=== PATIENT | female | born 1980 | race Caucasian/White ===

== ENCOUNTER → 2019-07-02 17:48 | Outpatient (CLI) | payer OTHER, SELFPAY ==
--- NOTE | 2019-07-02 | DI.MG.S_ITS ---
BILATERAL DIGITAL SCREENING MAMMOGRAM 3D/2D WITH CAD: 07/02/2019 CLINICAL: Routine screening. Baseline exam. No prior exams were available for comparison. The tissue of both breasts is heterogeneously dense. This may lower the sensitivity of mammography. Current study was also evaluated with a Computer Aided Detection (CAD) system. No significant masses, calcifications, or other findings are seen in either breast. IMPRESSION: NEGATIVE There is no mammographic evidence of malignancy. A 1 year screening mammogram is recommended. This exam was interpreted at Station ID: [id number]. NOTE: For mammograms, a report in lay terms will be sent to the patient. Approximately 15% of breast malignancies will not be visualized mammographically. In the management of a palpable breast mass, a negative mammogram must not discourage biopsy of a clinically suspicious lesion. Electronically Signed By: Isaias shepherd/keerthi:07/03/2019 08:36:40 letter sent: Normal Exam ACR BI-RADS Category 1: Negative 3341F
== END ==
PROVIDERS: Visit Provider Nurse Practitioner Family
DX: Z12.31 Encounter for screening mammogram for malignant neoplasm of breast (principal)
CPT/HCPCS: 77063; 77067

== ENCOUNTER 2019-08-06 11:43 | Emergency (ER) | payer OTHER, SELFPAY ==
--- NOTE | 2019-08-06 | DI.US.S_ITS ---
PROCEDURE: US PERIPH VENOUS LOW EXTREM RT INDICATIONS: CALF PAIN X 1 WEEK TECHNIQUE: Real-time imaging, as well as color and pulse Doppler interrogation, were performed of the lower extremity deep veins from the inguinal ligament to the popliteal fossa. COMPARISON: None. FINDINGS: The common femoral, femoral and popliteal veins are normally compressible, and free of intraluminal thrombus. Color and pulse Doppler demonstrate normal phasic intraluminal flow. There is normal augmentation response to distal compression maneuver. IMPRESSION: No evidence of DVT in visualized right lower extremity veins. Dictated by: Jamar Canales M.D. on 08/06/2019 at 12:26 Approved by: Jamar Canales M.D. on 08/06/2019 at 12:26
[2019-08-06 11:49] VITALS: BP 123/79; PULSE 72; RESP 18; TEMP 36.8; O2SAT 94
--- NOTE | 2019-08-06 11:57 | ED_ITS ---
HPI - Extremity Injury (Lower) <RORO Cisneros - Last Filed: 08/06/19 13:28> General Chief Complaint: Extremity Injury, Lower Stated Complaint: right calf pain Time Seen by Provider: 08/06/19 11:44 Source: patient and family Mode of arrival: Ambulatory Limitations: no limitations History of Present Illness HPI Narrative: The patient is a 38-year-old female nonsmoker with history of idiopathic cardiomyopathy who presents with a chief complaint of right calf pain for the past week. She has a history of cardiomyopathy, was seen at [facility]. She presents with a chief complaint of right calf pain for a week. She went to the walk-in clinic, who referred her here for an ultrasound. She has taken Aleve on and off for the pain. She denies any immobility, surgeries, flights, hospitalizations etcetera. The pain comes and goes, no specific alleviating or exacerbating factors. Patient declines any specific physical activity, your work etcetera prior to the onset of the calf pain. She denies any chest pain, shortness of breath, nausea vomiting diarrhea fevers or abdominal pain. Related Data Home Medications Medication Instructions Recorded Confirmed spironolactone 25 mg PO DAILY #0 01/20/17 08/06/19 albuterol sulfate [Proventil HFA] 1 puff INH Q4HP PRN 08/06/19 08/06/19 carvedilol 50 mg PO BID 08/06/19 08/06/19 drospirenone-ethinyl estradiol 1 tab PO DAILY 08/06/19 08/06/19 [Ocella] flecainide 150 mg PO DAILY 08/06/19 08/06/19 sacubitril-valsartan [Entresto] 1 tab PO BID 08/06/19 08/06/19 sumatriptan succinate [Imitrex] 0 mg PO PRN PRN 08/06/19 08/06/19 Previous Rx's Medication Instructions Recorded levothyroxine 200 mcg tablet 200 mcg PO QAM #30 tab 06/26/18 Review of Systems <RORO Cisneros - Last Filed: 08/06/19 13:28> Review of Systems Narrative: GENERAL: Denies chills, fatigue, malaise, fever, sweats. HEENT: Denies sinus pain, ear pain, sore throat, difficulty swallowing, dizziness. RESPIRATORY: Denies dyspnea, cough, wheezing, hemoptysis, sputum. CARDIOVASCULAR: Denies chest pain, palpitations, orthopnea, edema, GASTROINTESTINAL: Denies nausea, vomiting, abdominal pain, diarrhea, cons tipation, melena. : Denies dysuria, frequency, incontinence, hematuria, urinary retention. MUSCULOSKELETAL: See HPI SKIN: Denies rash, skin lesions, or other NEUROLOGIC: Denies weakness, headache, numbness, change in speech, confusion, seizures, incoordination. PSYCHIATRIC: No concerning psychosocial issues. 12 point review of systems is negative except for those stated above Patient History <RORO Cisneros - Last Filed: 08/06/19 13:28> Medical History (Updated 08/06/19 @ 13:25 by RORO Cisneros) Idiopathic cardiomyopathy (Acute) Surgical History (Updated 12/26/17 @ 06:17 by Conversion Provider) Status post hernia repair Family History (Updated 04/08/14 @ 00:00 by Conversion Provider) Father Age: 69 High cholesterol Mother Age: 69 High cholesterol Social History Smoking Status: Never smoker Smoking Status: Never smoker alcohol intake frequency: 0-2 drinks per day Substance Use Type: does not use Exam <RORO Cisneros - Last Filed: 08/06/19 13:28> Narrative Exam Narrative: GENERAL: This is a well-nourished, well-developed patient, in no acute distress HEAD: Atraumatic. Normocephalic. No temporal or scalp tenderness. EYES: Pupils equal round and reactive. Extraocular motions intact. No scleral icterus. No injection or drainage. ENT: Nose without bleeding, purulent drainage or septal hematoma. Throat without erythema, tonsillar hypertrophy or exudate. Uvula midline. Airway patent. NECK: Trachea midline. No JVD or lymphadenopathy. Supple, nontender, no meningeal signs. CARDIOVASCULAR: Regular rate and rhythm RESPIRATORY: Clear to auscultation. Breath sounds equal bilaterally. No wheezes, rales, or rhonchi. No cough. No increased respiratory effort. No accessory muscle use. GASTROINTESTINAL: Abdomen soft, non-tender, nondistended. No hepato- splenomegaly, or palpable masses. No guarding. Active bowel sounds all 4 quadrants EXTREMITIES: No clubbing, cyanosis, or edema. No joint tenderness, effusion, or edema noted. BACK: Nontender without deformity or crepitance. No flank tenderness. NEURO: AOx3. SKIN: No rash or erythema or ecchymosis on visible skin. No erythema ecchymosis noted right lower leg. Initial Vital Signs Initial Vital Signs: Vital Signs Temperature 98.3 F 08/06/19 11:49 Pulse Rate 72 08/06/19 11:49 Respiratory Rate 18 08/06/19 11:49 Blood Pressure 123/79 08/06/19 11:49 Pulse Oximetry 94 08/06/19 11:49 <Ananya Blair DO - Last Filed: 08/06/19 19:25> Initial Vital Signs Initial Vital Signs: Vital Signs Temperature 98.3 F 08/06/19 11:49 Pulse Rate 72 08/06/19 11:49 Respiratory Rate 18 08/06/19 11:49 Blood Pressure 123/79 08/06/19 11:49 Pulse Oximetry 94 08/06/19 11:49 Course <RORO Cisneros - Last Filed: 08/06/19 13:28> Orders Ordered: ED Orders 08/06/19 11:52 US periph venous low extrem rt Stat Vital Signs Vital signs: Vital Signs - 8 hr 08/06/19 11:49 08/06/19 13:15 Temperature 98.3 F Pulse Rate 72 70 Respiratory Rate 18 15 Blood Pressure 123/79 Blood Pressure [Left Arm] 112/68 Pulse Oximetry 94 99 <Ananya Blair DO - Last Filed: 08/06/19 19:25> Orders Ordered: ED Orders 08/06/19 11:52 US periph venous low extrem rt Stat Vital Signs Vital signs: Vital Signs - 8 hr 08/06/19 11:49 08/06/19 13:15 Temperature 98.3 F Pulse Rate 72 70 Respiratory Rate 18 15 Blood Pressure 123/79 Blood Pressure [Left Arm] 112/68 Pulse Oximetry 94 99 MDM - Extremity Injury (Lower) <RORO Cisneros - Last Filed: 08/06/19 13:28> Imaging Data Venous US: Radiologist's impression: [address] [address] Ultrasound Report Signed Patient: Leonela Turner JMR#: [id number] : 1980Acct:[id number] Age/Sex: 38 / FDate of Service: 08/06/19 Loc: ED Accession Number: [id number] Procedure: US periph venous low extrem rt Ordering Provider: Lupis Vazquez PROCEDURE: US PERIPH VENOUS LOW EXTREM RT INDICATIONS: CALF PAIN X 1 WEEK TECHNIQUE: Real-time imaging, as well as color and pulse Doppler interrogation, were per formed of the lower extremity deep veins from the inguinal ligament to the popliteal fossa. COMPARISON: None. FINDINGS: The common femoral, femoral and popliteal veins are normally compressible, and free of intraluminal thrombus. Color and pulse Doppler demonstrate normal phasic intraluminal flow. There is normal augmentation response to distal compression maneuver. IMPRESSION: No evidence of DVT in visualized right lower extremity veins. Dictated by: Jamar Canales M.D. on 08/06/2019 at 12:26 Approved by: Jamar Canales M.D. on 08/06/2019 at 12:26 [facility] Narrative Medical decision making narrative: The patient is a 38-year-old female with history of idiopathic cardiomyopathy who presents with a chief complaint of right lower leg pain for the past week. Ultrasound reveals no evidence of DVT. She and her requested to leave after this information. I discussed at length coming back to the emergency department for any acute concerns such as further concern of DVT, chest pain shortness of breath. No questions or concerns upon discharge states understanding of return precautions as well as follow-up care with PCP. Encourage conservative measures such as Tylenol Motrin rest ice compression elevation in the meantime. Requested to leave prior to discharge instructions. Discharge Plan Departure Patient Disposition: Home Clinical Impression: Leg pain, right Discharge Date/Time: 08/06/19 13:35 Prescriptions: No Action spironolactone 25 MG tablet 25 mg PO DAILY Qty: 0 RF: 0 levothyroxine 200 mcg tablet 200 mcg PO QAM Qty: 30 RF: 0 carvedilol 25 mg tablet 50 mg PO BID RF: 0 flecainide 150 mg tablet 150 mg PO DAILY RF: 0 Entresto 97-103 mg tablet 1 tab PO BID RF: 0 drospirenone-ethinyl estradiol [Ocella] 3-0.03 mg tablet 1 tab PO DAILY RF: 0 albuterol sulfate [Proventil HFA] 90 MCG/PUFF HFA aerosol inhaler 1 puff INH Q4HP PRN (Reason: Shortness Of Breath) RF: 0 sumatriptan succinate [Imitrex] 100 MG tablet 0 mg PO PRN PRN (Reason: Migraine Headache) RF: 0
[2019-08-06 13:15] VITALS: BP 112/68; PULSE 70; RESP 15; O2SAT 99
== END 2019-08-06 13:35 | disposition home or self-care (01) ==
PROVIDERS: Emergency Provider Nurse Practitioner Family
DX: M79.661 Pain in right lower leg (principal); Z86.79 Personal history of other diseases of the circulatory system
CPT/HCPCS: 93971; 99283

== ENCOUNTER → 2019-09-25 07:14 | Outpatient (CLI) | payer OTHER, SELFPAY ==
[2019-09-25 08:41] LABS: Cholesterol 186 mg/dL (140-199); HDL Cholesterol 41 mg/dL (40-60); LDL Cholesterol Calculated 103 mg/dL (<100); Triglycerides 208 mg/dL (35-150)
[2019-09-25 08:55] LABS: Free T4, Direct Thyroxine 2.08 ng/dL (0.78-2.19); T7 (Free Thyroxine Index) 5.36 (1.65-3.89); Triiodothryronine T3 Uptake 31.7 % (23.5-40.5)
[2019-09-25 09:09] LABS: Thyroid Stimulating Hormone 3.46 uIU/mL (0.47-4.68)
== END ==
PROVIDERS: Visit Provider Nurse Practitioner Family
DX: E03.9 Hypothyroidism, unspecified (principal)
CPT/HCPCS: 36415; 80061; 84436; 84439; 84443; 84479

== ENCOUNTER → 2020-05-20 09:34 | Outpatient (CLI) | payer OTHER, SELFPAY ==
[2020-05-20 11:30] LABS: Free T4, Direct Thyroxine 2.02 ng/dL (0.78-2.19)
[2020-05-20 11:44] LABS: Thyroid Stimulating Hormone 3.03 uIU/mL (0.47-4.68)
== END ==
PROVIDERS: Referring Provider Internal Medicine Endocrinology, Diabetes & Metabolism; Visit Provider Internal Medicine Endocrinology, Diabetes & Metabolism
DX: E03.8 Other specified hypothyroidism (principal); E06.3 Autoimmune thyroiditis
CPT/HCPCS: 36415; 84439; 84443

== ENCOUNTER → 2020-10-06 16:08 | Outpatient (CLI) | payer OTHER, SELFPAY ==
--- NOTE | 2020-10-06 16:12 | DI.MG.S_ITS ---
BILATERAL DIGITAL SCREENING MAMMOGRAM 3D/2D WITH CAD: 10/06/2020 CLINICAL: Routine screening. Comparison is made to exam dated: 07/02/2019 [facility]. The tissue of both breasts is heterogeneously dense. This may lower the sensitivity of mammography. Current study was also evaluated with a Computer Aided Detection (CAD) system. No significant masses, calcifications, or other findings are seen in either breast. There has been no significant interval change. IMPRESSION: NEGATIVE There is no mammographic evidence of malignancy. A 1 year screening mammogram is recommended. This exam was interpreted at Station ID: [id number]. NOTE: For mammograms, a report in lay terms will be sent to the patient. Approximately 15% of breast malignancies will not be visualized mammographically. In the management of a palpable breast mass, a negative mammogram must not discourage biopsy of a clinically suspicious lesion. Electronically Signed By: Mayur desai/keerthi:10/06/2020 17:54:20 letter sent: Normal Exam ACR BI-RADS Category 1: Negative 3341F
--- NOTE | 2020-10-06 16:12 | DI.RAD.S_ITS ---
PROCEDURE: XR CHEST 2V INDICATIONS: LEFT RIB CLAVICAL PAIN TECHNIQUE: 2 views of the chest were acquired. COMPARISON: [facility], CHEST 1 VIEW, 01/06/2017, 8:55. [facility], CHEST 2 VIEW, 12/19/2016, 15:58. [facility], CHEST 2 VIEW, 11/21/2013, 15:03. FINDINGS: Surgical changes and devices: None. Lungs and pleura: Lungs are clear. No pleural effusions or pneumothorax. Mediastinum: Mediastinal contours are normal. Heart size is normal. Bones and chest wall: No suspicious bony abnormalities. Soft tissues appear unremarkable. IMPRESSION: No acute cardiopulmonary disease. Dictated by: Hannah Baum M.D. on 10/06/2020 at 16:42 Approved by: Hannah Baum M.D. on 10/06/2020 at 16:44
== END ==
PROVIDERS: Referring Provider Physician Assistant; Visit Provider Physician Assistant
DX: Z12.31 Encounter for screening mammogram for malignant neoplasm of breast (principal); R07.81 Pleurodynia; M25.512 Pain in left shoulder
CPT/HCPCS: 71046; 77063; 77067

== ENCOUNTER → 2021-12-21 10:17 | Outpatient (CLI) | payer OTHER, SELFPAY ==
[2021-12-21 11:56] LABS: Add Manual Diff / Slide Review NO; Basophils Absolute Auto 0 /uL (0-100); Basophils Percent Auto 0.5 % (0-2); Eosinophils Absolute Auto 0 /uL (0-450); Eosinophils Percent Auto 0.9 % (2-4); Hematocrit 39.8 % (36-46); Hemoglobin 13.6 g/dL (12.0-16.0); Lymphocytes Absolute Auto 2100 /uL (1100-4500); Lymphocytes Percent Auto 41.3 % (25-40); Mean Corpuscular HGB Conc 34.2 % (30-36); Mean Corpuscular Hemoglobin 30.1 PG (26-34); Mean Corpuscular Volume 87.9 fL (80-100); Monocytes Absolute Auto 400 /uL (0-900); Neutrophils Absolute Auto 2500 /uL (1500-7000); Neutrophils Percent Auto 49.3 % (50-75); Platelet Count 251 X10^3/uL (150-400); Red Blood Cell Count 4.52 X10^6/uL (4.0-5.2)
[2021-12-22 07:26] LABS: Alanine Aminotransferase 15 IU/L (<35); Albumin 3.8 g/dL (3.5-5.0); Albumin Globulin Ratio 1.2 (1.0-2.8); Alkaline Phosphatase 42 U/L (38-126); Aspartate Aminotransferase 21 IU/L (14-36); BUN Creatinine Ratio 26.9 (6-22); Bilirubin Total 0.4 mg/dL (0.2-1.3); Blood Urea Nitrogen 25 mg/dL (7-17); Calcium 9.2 mg/dL (8.4-10.2); Carbon Dioxide 27 mmol/L (22-32); Chloride 106 mmol/L (98-107); Cholesterol 223 mg/dL (140-199); Estimated Glomerular Filt Rate > 60 mL/min (>60); Globulin 3.3 g/dL (1.7-4.1); Glucose 96 mg/dL (70-100); HDL Cholesterol 73 mg/dL (40-60); HEMOLYSIS < 15 (0-50); LDL Cholesterol Calculated 123 mg/dL (<100); Potassium 4.6 mmol/L (3.4-5.1); Sodium 139 mmol/L (137-145); Total Protein 7.1 g/dL (6.3-8.2); Triglycerides 136 mg/dL (35-150)
== END ==
PROVIDERS: PCP Physician Assistant; Referring Provider Physician Assistant; Visit Provider Physician Assistant
DX: I42.9 Cardiomyopathy, unspecified (principal); E03.9 Hypothyroidism, unspecified
CPT/HCPCS: 36415; 80053; 80061; 84443; 85025

== ENCOUNTER → 2022-01-06 16:02 | Outpatient (CLI) | payer OTHER, SELFPAY ==
--- NOTE | 2022-01-06 16:05 | DI.MG.S_ITS ---
BILATERAL DIGITAL SCREENING MAMMOGRAM 3D/2D WITH CAD: 01/06/2022 CLINICAL: Routine screening. Comparison is made to exams dated: 10/06/2020 mammogram and 07/02/2019 mammogram - [facility]. The tissue of both breasts is heterogeneously dense. This may lower the sensitivity of mammography. Current study was also evaluated with a Computer Aided Detection (CAD) system. No significant masses, calcifications, or other findings are seen in either breast. There has been no significant interval change. IMPRESSION: NEGATIVE There is no mammographic evidence of malignancy. A 1 year screening mammogram is recommended. This exam was interpreted at Station ID: [id number]. NOTE: For mammograms, a report in lay terms will be sent to the patient. Approximately 15% of breast malignancies will not be visualized mammographically. In the management of a palpable breast mass, a negative mammogram must not discourage biopsy of a clinically suspicious lesion. Electronically Signed By: Mayur Skinner M.D. [facility]/keerthi:01/07/2022 08:15:13 letter sent: Normal Exam ACR BI-RADS Category 1: Negative 3341F
== END ==
PROVIDERS: PCP Physician Assistant; Referring Provider Physician Assistant; Visit Provider Physician Assistant
DX: Z12.31 Encounter for screening mammogram for malignant neoplasm of breast (principal)
CPT/HCPCS: 77063; 77067

== ENCOUNTER → 2023-03-01 08:10 | Outpatient (CLI) | payer OTHER, SELFPAY ==
--- NOTE | 2023-03-01 | DI.MG.S_ITS ---
BILATERAL DIGITAL SCREENING MAMMOGRAM 3D/2D WITH CAD: 03/01/2023 CLINICAL: Routine screening. Comparison is made to exams dated: 01/06/2022 mammogram, 10/06/2020 mammogram, and 07/02/2019 mammogram - [facility]. Both breasts are heterogeneously dense, which may obscure small masses (category c / 51-75% glandular tissue). Current study was also evaluated with a Computer Aided Detection (CAD) system. No significant masses, calcifications, or other findings are seen in either breast. There has been no significant interval change. IMPRESSION: NEGATIVE There is no mammographic evidence of malignancy. A 1 year screening mammogram is recommended. Based on the Tyrer Cuzick model (a risk assessment model) the patient's lifetime risk is 9.9% and her 10 year risk is 1.7%. According to the ACR, ACS, and NCCN guidelines, an annual breast MRI exam along with mammogram is recommended if the patient's lifetime risk is 20% or greater. This exam was interpreted at Station ID: [id number]. NOTE: For mammograms, a report in lay terms will be sent to the patient. Approximately 15% of breast malignancies will not be visualized mammographically. In the management of a palpable breast mass, a negative mammogram must not discourage biopsy of a clinically suspicious lesion. Electronically Signed By: Regulo ochoa/keerthi:03/01/2023 08:52:45 letter sent: Normal Exam ACR BI-RADS Category 1: Negative 3341F
== END ==
PROVIDERS: PCP Nurse Practitioner Family; Referring Provider Nurse Practitioner Family; Visit Provider Nurse Practitioner Family
DX: Z12.31 Encounter for screening mammogram for malignant neoplasm of breast (principal)
CPT/HCPCS: 77063; 77067

== ENCOUNTER → 2024-04-02 10:12 | Outpatient (CLI) | payer OTHER, SELFPAY ==
--- NOTE | 2024-04-02 10:14 | DI.US.S_ITS ---
LIMITED ULTRASOUND OF RIGHT BREAST: 04/02/2024 CLINICAL: Follow up from addtional views. Comparison is made to exams dated: 04/02/2024 mammogram, 03/01/2023 mammogram, and 01/06/2022 mammogram - [facility]. Real-time ultrasound of the right breast 9 o'clock region was performed. No sonographic abnormality is seen in the area of clinical concern in the right breast at 9 o'clock, 15 cm from the nipple. IMPRESSION: NEGATIVE No sonographic abnormality in the area of clinical concern. No mammographic or sonographic evidence of malignancy. A 1 year screening mammogram is recommended. Clinical follow-up is also recommended, and further management of palpable abnormalities or other focal signs or symptoms should be based on the results of clinical evaluation. If palpable abnormality or other concerning symptom persists or progresses, further clinical evaluation should be considered. Findings and recommendations were conveyed to the patient during today's evaluation. This exam was interpreted at Station ID: [id number]. Electronically Signed By: Merry Negron M.D., Ph.D. eb/:04/02/2024 11:37:26 letter sent: Clinical Evaluation Ultrasound BI-RADS: 1 Negative
--- NOTE | 2024-04-02 10:14 | DI.MG.S_ITS ---
BILATERAL DIGITAL DIAGNOSTIC MAMMOGRAM 3D/2D: 04/02/2024 CLINICAL: Right breast Pain. Comparison is made to exams dated: 03/01/2023 mammogram, 01/06/2022 mammogram, and 10/06/2020 mammogram - [facility]. Both breasts are heterogeneously dense, which may obscure small masses (category c / 51-75% glandular tissue). A BB marker was placed in the area of clinical concern in the right breast, and no mammographic abnormality is identified. No significant masses, calcifications, or other findings are seen in either breast. IMPRESSION: INCOMPLETE: NEEDS ADDITIONAL IMAGING EVALUATION No mammographic abnormality in the area of clinical concern. Recommend further evaluation with targeted breast ultrasound, which will immediately follow this exam. Based on the Tyrer Cuzick model (a risk assessment model) the patient's lifetime risk is 9.8% and her 10 year risk is 1.8%. According to the ACR, ACS, and NCCN guidelines, an annual breast MRI exam along with mammogram is recommended if the patient's lifetime risk is 20% or greater. This exam was interpreted at Station ID: [id number]. NOTE: For mammograms, a report in lay terms will be sent to the patient. Approximately 15% of breast malignancies will not be visualized mammographically. In the management of a palpable breast mass, a negative mammogram must not discourage biopsy of a clinically suspicious lesion. Electronically Signed By: Merry Negron M.D., Ph.D. eb/:04/02/2024 10:57:23 ACR BI-RADS Category 0: Incomplete 3340F
--- NOTE | 2024-04-02 10:15 | DI.RAD.S_ITS ---
PROCEDURE: XR DEXA AXIAL SKELETON INDICATIONS: osteoporosis screen COMPARISON: None. FINDINGS: Lumbar Spine: Bone mineral density 1.105 g/cm2, Z score 1.0, statistically significant decreased by 4.6 percent. Left Hip: Bone mineral density 0.967 g/cm2, T score 0.5, no statistically significant change. Left Femoral Neck: Bone mineral density 0.918 g/cm2, T score 1.1. Right Hip: Bone mineral density 0.932 g/cm2, T score 0.2, statistically significant decreased by 4.8 percent. Right Femoral Neck: Bone mineral density 0.989 g/cm2, T score 1.7. Fracture Risk Calculation (when applicable): 10-year fracture risk of a major osteoporotic fracture 2.2 percent and of a hip fracture less than 0.1 percent. (T score greater or equal to -1.0 to: NORMAL) (T score from -1.1 to -2.4: OSTEOPENIA) (T score less than or equal to -2.5: OSTEOPOROSIS) IMPRESSION: Normal bone mineral density. Follow-up guidelines as follows: Osteoporosis: Consider a repeat DEXA and Vertebral Fracture Assessment (VFA) exam in 2 years or sooner if medically necessary, to reassess this patient's status. Osteopenia: Consider a repeat DEXA in 2-3 years to reassess this patient's status, or if there is a new clinical indication. Normal: Consider a repeat DEXA in 5 years or sooner, or if there is a new clinical indication. All treatment decisions require clinical judgment and consideration of individual patient factors, including patient preferences, comorbidities, previous drug use, risk factors not captured in the FRAX model (e.g., frailty, falls, vitamin D deficiency, increased bone turnover, interval significant decline in bone density ) and possible under- or over-estimation of fracture risk by FRAX. In addition, the NOF Guide recommends that FDA-approved medical therapies be considered in postmenopausal women and men age >= 50 years with a: * Hip or vertebral (clinical or morphometric) fracture * T-score of <=-2.5 at the spine or hip * Ten-year fracture probability by FRAX of >= 3% for hip fracture or >=20% for major osteoporotic fracture. People with diagnosed cases of osteoporosis or at high risk for fracture should have regular bone mineral density tests. For patients eligible for Medicare, routine testing is allowed once every 2 years. The testing frequency can be increased to one year for patients who have rapidly progressing disease, those who are receiving or discontinuing medical therapy to restore bone mass, or have additional risk factors. Dictated by: Abdelrahman Soares M.D. on 04/02/2024 at 16:19 Approved by: Abdelrahman Soares M.D. on 04/02/2024 at 16:26
== END ==
PROVIDERS: PCP Specialist; Referring Provider Specialist; Visit Provider Specialist
DX: N63.10 Unspecified lump in the right breast, unspecified quadrant (principal); R92.2 Inconclusive mammogram; R92.333 Mammographic heterogeneous density, bilateral breasts; Z91.89 Other specified personal risk factors, not elsewhere classified
CPT/HCPCS: 76642; 77066; 77080; G0279

== ENCOUNTER 2025-04-03 10:05 | Day surgery (SDC) | payer OTHER, SELFPAY ==
[2025-04-03 10:41] VITALS: BP 112/76; PULSE 78; RESP 16; TEMP 36.1; O2SAT 97
[2025-04-03] MEDS: LACTATED RINGERS 1,000 ML 42 ML IV (10:54)
--- NOTE | 2025-04-03 10:54 | PM.HP.IH.1 ---
History of Present Illness History of Present Illness Date Patient Seen: 04/03/25 Time Patient Seen: 10:54 Chief complaint: Screening Colonoscopy Narrative: Marva is a 44-year-old here for a screening colonoscopy, her first. No known family history of colon cancer. [facility] Medical History (Updated 04/03/25 @ 10:55 by Sd Lopez MD) HLD (hyperlipidemia) NSVT (nonsustained ventricular tachycardia) TIA (transient ischemic attack) HFrEF (heart failure with reduced ejection fraction) Cardiomyopathy (01/06/17) Abnormal Pap smear of vagina (09/11/12) Idiopathic cardiomyopathy Surgical History (Updated 12/27/24 @ 07:07 by Natalee Murphy MA) History of hernia repair [place] teeth removed Status post hernia repair Family History (Updated 12/27/24 @ 07:09 by Natalee Murphy MA) Father Age: 75 High cholesterol Parkinson's disease Mother Age: 75 High cholesterol Myasthenia gravis Osteoporosis Osteoarthritis Social History (Updated 12/27/24 @ 07:09 by Natalee Murphy MA) marital status: unmarried,living together number of children: 2 household members: spouse and children lives independently: Yes caregiver/support person: No housing: house pets and animals: Yes education level: college occupational status: employed current occupational exposures/hazards: No Previous occupational history: Teacher barrera/jehovah's witness: None special barrera needs: No travel history: recent sexual history: One partner leisure activities: reading seatbelt use: always helmet use: Yes water heater temp set < 120 deg: Yes working smoke detector in home: Yes fire extinguisher in home: Yes carbon monox detector in home: Yes do you feel safe at home: Yes Smoking Status: Never smoker second hand exposure: No alcohol intake: current substance use type: does not use during the past year weight has: other well-balanced diet: daily or most days daily servings fruits/ve-4 caffeine: Yes eating out: 1-3 times/week Type(s) of exercise: walking, occasional exercise and yoga frequency: 1-2 times per week duration: 15-30 minutes/day Meds Home Medications and Allergies Home Medications ?Medication ?Instructions ?Recorded ?Confirmed ?Type carvedilol 25 mg tablet 50 mg PO BID 08/06/19 04/03/25 History flecainide 150 mg tablet 150 mg PO DAILY 08/06/19 04/03/25 History sacubitril 97 mg-valsartan 103 mg 1 tab PO BID 08/06/19 04/03/25 History tablet (Entresto) dapagliflozin propanediol 10 mg 10 mg PO DAILY 08/16/23 04/03/25 History tablet (Farxiga) liothyronine 5 mcg tablet 5 mcg PO DAILY 08/16/23 04/03/25 History rosuvastatin 20 mg tablet 20 mg PO ONCE PM 08/16/23 04/03/25 History levothyroxine 175 mcg tablet 175 mcg PO DAILY 12/27/24 04/03/25 History (Synthroid) progesterone micronized 200 mg 200 mg PO ONCE PM 12/27/24 04/03/25 History capsule sumatriptan succinate 100 mg 100 mg PO DAILY PRN Migraine 12/27/24 04/03/25 History tablet (Imitrex) Headache terbinafine HCl 250 mg tablet 250 mg PO DAILY #60 tabs 04/02/25 04/03/25 Rx Allergies Allergy/AdvReac Type Severity Reaction Status Date / Time No Known Drug Allergies Allergy Verified 04/03/25 10:36 Exam Vital Signs (past 8 hours): - 04/03/25 10:41 Temperature 97.0 F L Pulse Rate 78 Respiratory Rate 16 Blood Pressure 112/76 Pulse Oximetry 97 Oxygen Delivery Method Room Air Oxygen Delivery Method Room Air Const General: No acute distress Assessment & Plan Assessment and plan (1) Colon cancer screening: Status: Acute Plan Colonoscopy Time-Based Coding :: [TOTAL MINUTES] spent with patient and on the chart (including review of chart, obtaining history, exam, reviewing outside data, placing orders, documenting exam and treatment plan, and counseling patient) on [DATE]. [employer]EE [employer] Coordinator Document charge(s): No
--- NOTE | 2025-04-03 11:46 | PM.OP.COLON ---
Operative Date/Time/Diagnoses Date of procedure: 04/03/25 Time of procedure: 11:46 Pre-op diagnosis: Colon cancer screening Post-op diagnosis: same Procedure & Clinicians Study performed: Colonoscopy Same procedure(s) as scheduled: Yes Surgeon: Sd Lopez Anesthesia Type: MAC +/- Procedure Notes Procedure in detail: Surgeon: Sd Lopez MD Anesthesia: Cortez Brito.Ian Procedure: The patient was brought to the endoscopy suite, placed in left lateral decubitus position. The patient was connected to monitoring devices. A time-out was performed. Sedation was administered. Once the patient was adequately sedated, a digital rectal exam was performed and was normal. The scope was then inserted and advanced to the cecum where the appendiceal orifice was identified and photographed. The scope was then slowly withdrawn over greater than 6 minutes. The mucosa was thoroughly inspected. No abnormalities were found. The scope was retroflexed in the rectum. The scope was straightened and removed. The patient was awakened and brought to recovery. Scope withdrawal time: 6 minutes Sedation time: 11 minutes EBL: 0 Findings: Normal colon Post-procedure Recommendations: Colonoscopy in 10 years Disposition: PACU
[2025-04-03 11:52] VITALS: BP 98/54; PULSE 85; RESP 15; TEMP 36.4; O2SAT 99
== END 2025-04-03 11:59 | disposition home or self-care (01) ==
PROVIDERS: PCP Family Medicine; Referring Provider Family Medicine; Visit Provider Surgery
PROC: 0DJD8ZZ Inspection of Lower Intestinal Tract, Via Natural or Artificial Opening Endoscopic (ICD-10-PCS; CPT 45378; principal; 2025-04-03 11:30)
DX: Z12.11 Encounter for screening for malignant neoplasm of colon (principal)
CPT/HCPCS: 45378; J2704